=== PATIENT | female | born 1990 | race Caucasian/White ===

== ENCOUNTER 2018-04-04 15:03 | Emergency (ER) | payer SELFPAY ==
[~2018-04-04] VITALS: Ht 170.2 cm; Wt 61.2 kg
--- NOTE | 2018-04-04 15:29 | NUR ---
27 Y/O FEMALE PLACED IN BED 3 C/O LOWER ABDOMINAL PAIN FOR ABOUT A WEEK.
[2018-04-04 15:53] LABS: APPEARANCE,URINE Clear (CLEAR); BILIRUBIN,URINE Negative (NEGATIVE); BLOOD, URINE Moderate Ery/uL (NEGATIVE); COLOR,URINE Yellow (YELLOW); KETONES,URINE Negative (NEGATIVE); LEUKOCYTE ESTERASE ,URINE Negative (NEGATIVE); NITRITE, URINE Negative (NEGATIVE); PROTEIN,URINE Negative (NEGATIVE); UGLUCOSE Negative (NEGATIVE); UROBILINOGEN,URINE 0.2 EU/dL (0.2)
[2018-04-04 15:57] LABS: BASOPHILS % (AUTO) 0.4 % (0.0-2.0); EOSINOPHILS % (AUTO) 0.7 % (0.0-6.0); HEMATOCRIT 37 % (33-45); HEMOGLOBIN 12.8 g/dL (11.5-14.8); LYMPHOCYTES # (AUTO) 2.2 /CMM (0.8-4.8); LYMPHOCYTES % (AUTO) 22.6 % (20.0-44.0); MEAN CORPUSCULAR HGB CONC 35 g/dl (31.0-36.0); MEAN CORPUSCULAR VOLUME 92 fL (82-100); MONOCYTES # (AUTO) 0.8 /CMM (0.1-1.30); MONOCYTES % (AUTO) 8.1 % (2.0-12.0); NEUTROPHILS # (AUTO) 6.8 /CMM (1.8-8.9); NEUTROPHILS % (AUTO) 68.2 % (43.0-81.0); PLATELET COUNT (AUTO) 267 /CMM (150-450); RDW COEFFICIENT OF VARIATION 11.5 (11.5-15.0); RED BLOOD CELL COUNT(AUTO) 3.99 MIL/uL (4.0-5.2); WHITE BLOOD COUNT (AUTO) 9.9 K/uL (4.3-11.0)
[2018-04-04] MEDS: IV NS 0.9% 1,000 ML BAG IV ONE (15:59)
[2018-04-04 16:09] LABS: BACTERIA,URINE None seen /HPF (None Seen); RBC,URINE 21-50 /HPF (0-2); SQUAMOUS EPITHELIAL CELL,UR Rare /HPF (None Seen); WBC,URINE NONE SEEN /HPF (0-3)
--- NOTE | 2018-04-04 16:19 | NUR ---
URINE OBTAINED AND SENT. BLOOD OBTAINED AND SENT. H/L PLACED AND IVF RUNNING.
[2018-04-04 16:22] LABS: CALCIUM, SERUM 9.3 mg/dL (8.5-10.1); CREATININE 0.7 mg/dL (0.6-1.3); POTASSIUM 3.9 mmol/L (3.5-5.1)
--- NOTE | 2018-04-04 17:25 | NUR ---
PELVIC SET UP. PERFORMED A PELVIC EXAM. NO CULTURES TAKEV.
[2018-04-04 17:42] VITALS: BP 133/75
--- NOTE | 2018-04-04 19:01 | NUR ---
WAITING FOR MD TO RE-EVALUATE PTAND DETERMINE ADMISSION OR DISCHARGE.
--- NOTE | 2018-04-04 19:09 | NUR ---
PT DISCHARGED HOME.
== END 2018-04-04 19:12 | disposition home or self-care (01) ==
LOC: ER 15:09
DX: N83.209 Unspecified ovarian cyst, unspecified side (principal); F10.10 Alcohol abuse, uncomplicated; Y90.9 Presence of alcohol in blood, level not specified
CPT/HCPCS: 36415; 76856-TC; 80048-TC; 81000-TC; 84703-TC; 85025-TC; 87086-TC; 87491; 87591; A4606; J7030; Z7610